=== PATIENT | female | born 1995 | race Caucasian/White ===

== ENCOUNTER 2019-10-12 22:19 | Emergency (ER) | payer BC ==
[~2019-10-12] VITALS: Ht 175.3 cm; Wt 77.0 kg
[~2019-10-12 22:19] MED LIST: AMOXICILLI400 MG/5 M PO; AMOXICILLIN500 MG PO; AUGMENTIN875TAB PO; BIRTH CONTROL; CEPHALEXIN500 MG PO; CIPROFLOXACN500 MG PO; CLINDAMYCI75 MG/5 ML OR; CLINDAMYCIN150 MG PO; DEP0PROVERA IM; DEPO-PROVER150 MG/ML IM; ERYTHROMYCIN BAS1 GM OD; FERR SULFATE325 MG PO; FLEXERIL PO; FLONASE NASAL50 MCG; FLOVENT DISKU100 MCG IN; FLOVENT HFA110 MCG IN; HYDROCORTISO2.51 EX; IMPLANON68 MG SC; KEFLEX500 MG PO; LORTAB5 PO; NAPROSYN375 MG PO; NAPROSYN500 MG PO; NO HOME MEDS; NORCO1 TA1 PO; PREDNISONE10 MG PO; PREMARIN1.25 MG PO; PROAIR HFA IN; QVAR80 MCG IN; TESSALON PER100 MG PO; ULTRAM50 M1 PO; ZOFRAN4 MG/TAB PO; [UNRECOGNIZED DRUG - OTHER] PO
[2019-10-13 01:26] VITALS: BP 127/65
== END 2019-10-13 01:26 | disposition home or self-care (01) | DRG 605 ==
LOC: ED 22:19
PROC: 0HQ0XZZ Repair Scalp Skin, External Approach (ICD-10-PCS; principal; 2019-10-12)
DX: S01.01XA Laceration without foreign body of scalp, initial encounter (principal); V58.4XXA Person boarding or alighting a pick-up truck or van injured in noncollision transport accident, initial encounter; Y93.9 Activity, unspecified; Y92.009 Unspecified place in unspecified non-institutional (private) residence as the place of occurrence of the external cause

== ENCOUNTER 2020-09-02 09:21 | Emergency (ER) | payer BC | END 2020-09-02 09:24 | disposition left against medical advice (07) | DRG 951 | LOC: ED 09:21 → LWOBS 09:24 | DX: Z53.21 Procedure and treatment not carried out due to patient leaving prior to being seen by health care provider (principal) ==

== ENCOUNTER 2024-01-20 17:07 | Emergency (ER) | payer SELFPAY ==
[~2024-01-20] VITALS: Ht 175.3 cm; Wt 77.0 kg
[2024-01-20 17:11] VITALS: BP 130/94
[2024-01-20 17:31] VITALS: BP 123/79
[2024-01-20 18:00] VITALS: BP 134/71
[2024-01-20] MEDS ORDERED: ALBUTEROL SULFATE 8 GM INH IN ONE (18:10)
[2024-01-20] MEDS ORDERED: predniSONE 20 MG/TAB PO ONE (18:10)
[2024-01-20] MEDS ORDERED: VENTOLIN HFA108 MCG PO (18:11)
[2024-01-20] MEDS ORDERED: PREDNISONE50 MG PO (18:11)
[2024-01-20] MEDS ORDERED: CHERATUSSIN PO (18:11)
[2024-01-20] MEDS ORDERED: AMOXICILLIN500 MG PO (18:11)
[2024-01-20 18:25] VITALS: BP 134/71
== END 2024-01-20 18:25 | disposition home or self-care (01) | DRG 153 ==
LOC: ED 17:07
DX: J06.9 Acute upper respiratory infection, unspecified (principal); Z20.822 Contact with and (suspected) exposure to COVID-19

== ENCOUNTER 2024-03-29 03:58 | Emergency (ER) | payer SELFPAY ==
[~2024-03-29] VITALS: Ht 175.3 cm; Wt 79.0 kg
[~2024-03-29 03:58] MED LIST changes: +CHERATUSSIN PO; +PREDNISONE50 MG PO; +VENTOLIN HFA108 MCG PO
[2024-03-29] MEDS ORDERED: DOXYCYCLINE HYCLATE 100 MG/CAP PO ONE (04:30)
[2024-03-29] MEDS ORDERED: KETOROLAC TROMETHAMINE 30 MG/ML SDV IV ONE (04:45)
[2024-03-29 05:09] LABS: BASO% 0.6 % (0-3); EOS% 1.7 % (0-8); HEMATOCRIT 37.7 % (37.0-47.0); HEMOGLOBIN 12.3 g/dl (12.0-16.0); IMMATURE GRANULOCYTES 0.1 % (0.0-5.0); LYMPH% 33.5 % (15-41); MEAN CORPUSCULAR HGB CONC 32.6 g/dL CAL (32.0-36.0); MONO% 7.4 % (2-13); NEUT# 4.41 thou/uL (2.00-7.15); NEUT% 56.7 % (42-76); RED BLOOD COUNT 4.1 mill/uL (4.20-5.60); RED CELL DISTRI WIDTH 11.8 % (11.5-15.5)
[2024-03-29 05:21] LABS: ALBUMIN 4.2 g/dL (3.2-5.0); BILIRUBIN, TOTAL 0.3 mg/dL (0.02-1.3); CREATININE 0.7 mg/dL (0.5-1.0); POTASSIUM 4.1 mmol/l (3.5-5.1); TOTAL PROTEIN 7.1 g/dL (6.3-8.2)
[2024-03-29 05:42] LABS: URINE BILIRUBIN - DIPSTICK Negative (NEGATIVE); URINE BLOOD DIPSTICK Negative (NEGATIVE); URINE GLUCOSE - DIPSTICK Negative (NEGATIVE); URINE KETONE Negative (NEGATIVE); URINE LEUK ESTERASE Negative (NEGATIVE); URINE NITRITE - DIPSTICK Negative (Negative); URINE PROTEIN - DIPSTICK Negative (NEG-TRACE); URINE SPECIFIC GRAVITY 1.025; URINE UROBILINOGEN - DIPSTICK 0.2 E.U./dL (0.2)
[2024-03-29 05:43] LABS: URINE COLOR Yellow
[2024-03-29] MEDS ORDERED: ONDANSETRON HCl 4 MG/2 ML SDV IV ONE (08:00)
[2024-03-29 08:23] VITALS: BP 81/61
[2024-03-29 08:30] VITALS: BP 102/67
[2024-03-29 08:37] VITALS: BP 102/67
== END 2024-03-29 08:58 | disposition home or self-care (01) | DRG 392 ==
LOC: ED 03:58
PROVIDERS: Family Medicine
DX: K59.00 Constipation, unspecified (principal); J45.909 Unspecified asthma, uncomplicated
CPT/HCPCS: J2405